=== PATIENT | female | born 1995 | race African-American/Black ===

== ENCOUNTER 2018-04-03 18:24 | Emergency (ER) | payer MEDICAID ==
[~2018-04-03] VITALS: Ht 170.2 cm; Wt 80.7 kg
--- NOTE | 2018-04-03 18:49 | NUR ---
URINE - SENT TO LAB
--- NOTE | 2018-04-03 18:49 | NUR ---
TO ER FOR TREATMENT AND EVAL OF POSS. STD
[2018-04-03] MEDS ORDERED: CEFTRIAXONE 500 MG VIAL ONE (19:12)
[2018-04-03] MEDS ORDERED: AZITHROMYCIN 250 MG TABLET ONE (19:12)
[2018-04-03 19:14] LABS: APPEARANCE,URINE SL CLOUDY (CLEAR); BILIRUBIN,URINE NEGATIVE (NEGATIVE); BLOOD, URINE 1+ Ery/uL (NEGATIVE); COLOR,URINE YELLOW (YELLOW); KETONES,URINE NEGATIVE (NEGATIVE); LEUKOCYTE ESTERASE ,URINE 3+ (NEGATIVE); NITRITE, URINE NEGATIVE (NEGATIVE); PH,URINE 5.5 (5.0-8.0); PROTEIN,URINE NEGATIVE (NEGATIVE); UGLUCOSE NEGATIVE (NEGATIVE); UROBILINOGEN,URINE 0.2 EU/dL (0.2)
[2018-04-03 19:28] LABS: BACTERIA,URINE Few /HPF (None Seen); SQUAMOUS EPITHELIAL CELL,UR Moderate /HPF (None Seen); TRICHOMONAS,URINE Few /HPF (None Seen); WBC,URINE 51-80 /HPF (0-3)
[2018-04-03] MEDS ORDERED: AZITHROMYCIN 250 MG TABLET PO ONE (19:30)
[2018-04-03] MEDS ORDERED: CEFTRIAXONE 500 MG VIAL IM ONE (19:30)
[2018-04-03 19:59] VITALS: BP 129/72
== END 2018-04-03 20:01 | disposition home or self-care (01) ==
LOC: ER 18:28
DX: A64 Unspecified sexually transmitted disease (principal)
CPT/HCPCS: 81001; 84703; 87086; 87210; 87491; 87591; 96372; 99284; A4606; J0696; Z7610; 81000-TC

== ENCOUNTER 2019-01-21 07:40 | Emergency (ER) | payer MEDICAID ==
[~2019-01-21] VITALS: Ht 172.7 cm; Wt 88.0 kg
--- NOTE | 2019-01-21 07:53 | NUR ---
PT BIB SELF C/O LOWER ABDOMINAL PAIN FOR 4 DAYS. Denies vomiting, PT IS AAOX4, NOT IN RESPIRATORY DISTRESS, V/S STABLE, KEPT RESTED AND COMFORTABLE, WILL CONTINUE TO MONITOR
--- NOTE | 2019-01-21 08:03 | NUR ---
SEEN AND EXAMINED BY .
--- NOTE | 2019-01-21 08:05 | NUR ---
URINE SPECIMEN COLLECTED AND SENT TO LAB.
[2019-01-21] MEDS ORDERED: LIDOCAINE /MPF 1% VIAL 5 ML VIAL ONE (08:07)
[2019-01-21] MEDS ORDERED: CEFTRIAXONE 1 G VIAL ONE (08:07)
--- NOTE | 2019-01-21 08:13 | NUR ---
BLOOD DRAWNED AND SENT TO LAB.
[2019-01-21 08:16] LABS: BASOPHILS % (AUTO) 0.5 % (0.0-2.0); EOSINOPHILS % (AUTO) 0.8 % (0.0-6.0); HEMATOCRIT 41 % (33-45); HEMOGLOBIN 13.9 g/dL (11.5-14.8); LYMPHOCYTES # (AUTO) 2.6 /CMM (0.8-4.8); LYMPHOCYTES % (AUTO) 36.2 % (20.0-44.0); MEAN CORPUSCULAR HGB CONC 34 g/dl (31.0-36.0); MEAN CORPUSCULAR VOLUME 88 fL (82-100); MONOCYTES # (AUTO) 0.5 /CMM (0.1-1.30); MONOCYTES % (AUTO) 6.8 % (2.0-12.0); NEUTROPHILS % (AUTO) 55.7 % (43.0-81.0); PLATELET COUNT (AUTO) 202 /CMM (150-450); WHITE BLOOD COUNT (AUTO) 7.2 K/uL (4.3-11.0)
[2019-01-21 08:27] LABS: CALCIUM, SERUM 8.4 mg/dL (8.5-10.1); CREATININE 0.9 mg/dL (0.6-1.3)
[2019-01-21] MEDS ORDERED: CEFTRIAXONE 1 G VIAL IM ONE (08:30)
[2019-01-21 08:41] LABS: BILIRUBIN,URINE Negative (NEGATIVE); BLOOD, URINE Negative Ery/uL (NEGATIVE); COLOR,URINE Yellow (YELLOW); KETONES,URINE Negative (NEGATIVE); LEUKOCYTE ESTERASE ,URINE Trace (NEGATIVE); NITRITE, URINE Negative (NEGATIVE); PH,URINE 5.5 (5.0-8.0); PROTEIN,URINE Negative (NEGATIVE); UGLUCOSE Negative (NEGATIVE); UROBILINOGEN,URINE 0.2 EU/dL (0.2)
[2019-01-21 08:42] LABS: APPEARANCE,URINE Slightly Hazy (CLEAR)
[2019-01-21 08:49] LABS: BACTERIA,URINE None seen /HPF (None Seen); RBC,URINE 0-3 /HPF (0-2); SQUAMOUS EPITHELIAL CELL,UR Few /HPF (None Seen)
[2019-01-21 09:30] VITALS: BP 129/71
--- NOTE | 2019-01-21 09:30 | NUR ---
Patient discharged to home in stable condition. Written and verbal after care instructions given. Patient verbalizes understanding of instruction.
== END 2019-01-21 09:32 | disposition home or self-care (01) ==
LOC: ER 07:40
DX: N76.0 Acute vaginitis (principal); N39.0 Urinary tract infection, site not specified
CPT/HCPCS: 36415; 80048; 81001; 84702; 85025; 87086; 87110; 87210; 87491; 87591; 96372; 99283; J0696; J3490; 81000-TC